=== PATIENT | male | born 1995 | race Caucasian/White ===

== ENCOUNTER 2018-10-28 20:06 | Emergency (ER) | payer MEDICAID ==
[~2018-10-28] VITALS: Ht 165.1 cm; Wt 90.7 kg
[2018-10-28 20:17] VITALS: BP 121/73
[2018-10-28] MEDS ORDERED: PROZAC20 MG PO (20:24)
[2018-10-28] MEDS ORDERED: VITAMINC500 PO (20:24)
[2018-10-28] MEDS ORDERED: OLANZAPINE20 M1 PO (20:25)
[2018-10-28] MEDS ORDERED: COLACE100 MG PO (20:26)
[2018-10-28] MEDS ORDERED: DELSYM COU30 MG/5 M1 PO (20:26)
[2018-10-28] MEDS ORDERED: IBUPROFEN 400400 M2 PO (20:27)
[2018-10-28] MEDS ORDERED: MIRALAX17 GM PO (20:27)
== END 2018-10-28 21:30 | disposition home or self-care (01) ==
LOC: M.ERS 20:06
DX: T78.1XXA Other adverse food reactions, not elsewhere classified, initial encounter (principal); Z88.0 Allergy status to penicillin; Z91.010 Allergy to peanuts; X58.XXXA Exposure to other specified factors, initial encounter

== ENCOUNTER 2018-11-02 18:17 | Emergency (ER) | payer MEDICAID ==
[~2018-11-02] VITALS: Ht 162.6 cm; Wt 90.7 kg
[~2018-11-02 18:17] MED LIST: COLACE100 MG PO; DELSYM COU30 MG/5 M1 PO; IBUPROFEN 400400 M2 PO; MIRALAX17 GM PO; OLANZAPINE20 M1 PO; PROZAC20 MG PO; VITAMINC500 PO
[2018-11-02] MEDS ORDERED: ERYTHROMYCIN E3.5 G2 OPHTHALMIC (19:10)
[2018-11-02 19:18] VITALS: BP 149/67
== END 2018-11-02 19:19 | disposition home or self-care (01) ==
LOC: M.ERS 18:17
DX: S05.02XA Injury of conjunctiva and corneal abrasion without foreign body, left eye, initial encounter (principal); Z91.010 Allergy to peanuts; Z88.0 Allergy status to penicillin; W22.8XXA Striking against or struck by other objects, initial encounter; Y92.89 Other specified places as the place of occurrence of the external cause; Y93.89 Activity, other specified; Y99.8 Other external cause status

== ENCOUNTER 2019-05-22 11:27 | Emergency (ER) | payer MEDICAID ==
[~2019-05-22] VITALS: Ht 167.6 cm; Wt 97.5 kg
[~2019-05-22 11:27] MED LIST changes: +ERYTHROMYCIN E3.5 G2 OPHTHALMIC
[2019-05-22 13:34] VITALS: BP 121/55
== END 2019-05-22 13:34 | disposition home or self-care (01) ==
LOC: M.ERS 11:27
DX: T78.40XA Allergy, unspecified, initial encounter (principal); Z88.0 Allergy status to penicillin; Z91.010 Allergy to peanuts; X58.XXXA Exposure to other specified factors, initial encounter